=== PATIENT | female | born 1990 | race Caucasian/White ===

== ENCOUNTER 2025-02-02 10:09 | Inpatient (IN) | payer MEDICAID ==
[~2025-02-02] VITALS: Ht 167.6 cm; Wt 56.0 kg
[2025-02-02] MEDS ORDERED: acetaminophen 325mg tablet PO PRN ×2 (10:25)
[2025-02-02] MEDS ORDERED: mag hydrox/Alum hydrox/simeth 30ml oral suspension PO PRN (10:25)
[2025-02-02] MEDS ORDERED: magnesium hydroxide 30ml (MOM) UD suspension PO PRN (10:25)
[2025-02-02] MEDS ORDERED: loperamide 2mg capsule PO PRN (10:25)
[2025-02-02] MEDS ORDERED: diphenhydrAMINE 25mg capsule PO PRN (10:30)
[2025-02-02] MEDS ORDERED: chlorproMAZINE 25mg tablet PO PRN (10:30)
[2025-02-02] MEDS ORDERED: traZODone 50mg tablet PO PRN (10:30)
[2025-02-02 10:47] VITALS: BP 126/96; PULSE 82; RESP 16; TEMP 98; O2SAT 100
[2025-02-02 12:18] VITALS: RESP 16; O2SAT 100
[2025-02-02] MEDS ORDERED: NO HOME MEDS (13:19)
[2025-02-02] MEDS ORDERED: sertraline 50mg tablet PO SCH (16:35)
[2025-02-02] MEDS ORDERED: ALPRAZolam 0.5mg tablet PO PRN (16:40)
[2025-02-02] MEDS: ALPRAZolam 0.5mg tablet PO ONE (16:46)
[2025-02-02] MEDS: sertraline 50mg tablet PO SCH (16:48)
[2025-02-02 19:00] VITALS: RESP 20; O2SAT 99
[2025-02-02] MEDS ORDERED: LORazepam 1 MG tablet PO PRN (19:35)
[2025-02-02 20:00] VITALS: BP 130/90; PULSE 80; RESP 20; TEMP 98.6; O2SAT 99
[2025-02-02] MEDS: traZODone 50mg tablet PO SCH (20:57)
[2025-02-03 07:00] VITALS: RESP 13
[2025-02-03 08:00] VITALS: BP 134/95; PULSE 67; RESP 13; TEMP 97.9; O2SAT 98
[2025-02-03 08:10] LABS: CHOL/HDL RATIO 2.3 (0.00-4.99); CHOLESTEROL 136 MG/DL (0-200); HDL CHOLESTEROL 59 MG/DL (35-60); LDL CHOLESTEROL 64 MG/DL (50-100); TRIGLYCERIDES 63 MG/DL (20-135)
[2025-02-03 19:00] VITALS: RESP 16; O2SAT 99
[2025-02-03 20:00] VITALS: BP 147/101; PULSE 75; RESP 16; TEMP 98.6; O2SAT 99
[2025-02-03] MEDS: hydrOXYzine 25 MG tablet PO PRN (20:47)
[2025-02-04 07:30] VITALS: BP 117/74; PULSE 83; RESP 18; TEMP 96.4; O2SAT 98
[2025-02-04] MEDS ORDERED: SERT-433 PO (10:27)
[2025-02-04] MEDS ORDERED: TRAZ-251 PO (10:27)
[2025-02-04] MEDS ORDERED: HYDR-3686 PO (11:58)
[2025-02-04] MEDS ORDERED: hydrOXYzine 25 MG tablet PO PRN (12:00)
== END 2025-02-04 11:44 | disposition home or self-care (01) | DRG 754 ==
LOC: UNDOADMIN 10:09 → ADULT MH 10:09
PROVIDERS: ADMIT Psychiatry & Neurology Psychiatry; ATTEND Psychiatry & Neurology Psychiatry
PROC: GZHZZZZ Group Psychotherapy (ICD-10-PCS; principal; 2025-02-02)
PROC: GZ51ZZZ Individual Psychotherapy, Behavioral (ICD-10-PCS; 2025-02-02)
DX: F32.9 Major depressive disorder, single episode, unspecified (principal); R45.851 Suicidal ideations; F10.10 Alcohol abuse, uncomplicated; F17.210 Nicotine dependence, cigarettes, uncomplicated; Z91.011 Allergy to milk products; Z88.5 Allergy status to narcotic agent
CPT/HCPCS: 36415; 80061; 87081; A6250; Q0177

== ENCOUNTER 2025-03-31 14:16 | Emergency (ER) | payer MEDICAID ==
[~2025-03-31] VITALS: Ht 167.6 cm; Wt 59.3 kg
[~2025-03-31 14:16] MED LIST: HYDR-3686 PO; SERT-433 PO; TRAZ-251 PO
[2025-03-31 14:21] VITALS: BP 152/105; PULSE 92; RESP 16; O2SAT 100
[2025-03-31] MEDS ORDERED: HYDR-3686 PO (14:47)
[2025-03-31] MEDS ORDERED: OXYC-658 PO (14:47)
[2025-03-31] MEDS ORDERED: ALPR2TAB2 PO (14:47)
[2025-03-31] MEDS ORDERED: ONDA-243 PO (14:47)
--- NOTE | 2025-03-31 14:49 | Physician Documentation ---
HPI ~ General Chief Complaint: Medication Request Stated Complaint: PT STATES ANXIETY Time Seen by MD: 14:17 History of Present Illness HPI Comments 34-year-old female reports ER with chief complaint anxiousness and pain. Patient is currently dealing meds severe anxiousness due to her daughter passing recently. Patient is also endorsing chronic back pain he is asking for refill for medications. Currently denies SI, HI, visual auditory hallucinations. No other complaints at this time Medication Reconciliation Allergies: Coded Allergies: Milk Containing Products (Dairy) (Verified Allergy, Mild, 02/02/25) Uncoded Allergies: [place], Vicodin (Allergy, Unknown, 02/02/25) Scheduled Hydroxyzine Hcl (Atarax), 1 TAB PO Q12H Sertraline HCl (Sertraline HCl), 50 MG PO DAILY Trazodone HCl (Trazodone HCl), 50 MG PO HS Scheduled PRN Alprazolam (Xanax), 1 TAB PO Q12H PRN PRN for anxiety Hydroxyzine Hcl* (Atarax*), 50 MG PO Q6H PRN for itching ONDANSETRON ODT 4mg tablet (Ondansetron Odt), 1 TAB PO Q6H PRN PRN for nausea/vomiting Oxycodone Hcl IR* (Oxycodone IR*), 1 TAB PO Q12H PRN PRN for pain Past Medical History Patient History: FH: lung cancer (Mesothelioma) Smoking Status: Current every day smoker Physical Exam Physical Exam Vital Signs: Temperature: 98.0, Source: Temporal, Heart Rate: 92, Respiratory Rate: 16, BP: 152/105, Pulse Oximetry: 100, Weight: 59.300 Oxygen Flow Rate: 0 Physical Exam General: Well developed, well nourished, no distress. HEENT: Atraumatic, normal conjunctiva, moist mucous membranes. Neck: Full range of motion, supple. Respiratory: Lungs clear, no respiratory distress. Chest: No accessory muscle use, nontender. Cardiovascular: Regular rate and rhythm. Gastrointestinal: Soft, nontender, nondistended. Bowel sounds present. Extremities: Normal range of motion, nontender, normal capillary refill, no deformity. Back: No midline tenderness, no CVA tenderness. Neurologic: Oriented x4. Distal gross motor and sensory intact all four extremities. Moves all 4 extremities spontaneously. Psychiatric: Normal mood and affect. Skin: Normal color, warm and dry. No edema, no ecchymosis Progress Results/Orders Results/Orders Vital Signs 03/31/25 03/31/25 14:21 14:50 Temp 98.0 98.0 Pulse 92 Resp 16 B/P (MAP) 152/105 Pulse Ox 100 O2 Flow Rate 0 Medical Decision Making Findings After detailed discussion and joint medical decision-making, diagnostic and imaging results were discussed with the patient. At this time patient we will be given pain medication as well as Xanax refill. Patient advised to follow up with primary care. ER precautions were given. Patient is stable upon discharge. All patient questions answered to satisfaction Differential Dx:Considerations: Include: Adverse circumstances, Psychosocial, Medical services unavail., Medication refill, Other (Back pain) Departure Disposition: 01 HOME / SELF CARE / HOMELESS Impression: Primary Impression: General medical exam Additional Impressions: Anxiousness Back pain Condition: Stable Discharge Instructions: Medicine Refill at the Emergency Department Referrals: NO PRIMARY CARE PROVIDER (PCP) Prescriptions Oxycodone Hcl IR* (Oxycodone IR*) 5 Mg Tablet 1 TAB PO Q12H PRN PRN for pain for 15 Days, #30 TAB Prov: SARAH HOGAN 03/31/25 Alprazolam (Xanax) 2 Mg Tablet 1 TAB PO Q12H PRN PRN for anxiety for 30 Days, #60 TAB 0 Refills Prov: SARAH HOGAN 03/31/25 Hydroxyzine Hcl (Atarax) 25 Mg Tablet 1 TAB PO Q12H for anxiety for 30 Days, #60 TAB 0 Refills Prov: SARAH HOGAN 03/31/25 ONDANSETRON ODT 4mg tablet (ONDANSETRON ODT) 4 Mg Tab.rapdis 1 TAB PO Q6H PRN PRN for nausea/vomiting for 4 Days, #30 TAB 0 Refills Prov: SARAH HOGAN 03/31/25 Education Educated: Patient Educated regarding: diagnosis, treatment Signature Scribe Signature: none used Attestation: Scribed for Sarah Hogan by Sarah FERGUSON . 03/31/25 14:49 SARAH HOGAN March 31, 2025 14:49
[2025-03-31 14:50] VITALS: TEMP 98
== END 2025-03-31 14:52 | disposition home or self-care (01) ==
LOC: ER 14:16
DX: F41.9 Anxiety disorder, unspecified (principal); G89.29 Other chronic pain; M54.9 Dorsalgia, unspecified; F17.200 Nicotine dependence, unspecified, uncomplicated; Z91.011 Allergy to milk products; Z79.899 Other long term (current) drug therapy
CPT/HCPCS: 99283

== ENCOUNTER 2025-09-01 07:18 | Inpatient (IN) | payer MEDICAID ==
[~2025-09-01] VITALS: Ht 167.6 cm; Wt 63.4 kg
[~2025-09-01 07:18] MED LIST changes: +ALPR2TAB2 PO; +ONDA-243 PO; +OXYC-658 PO
[2025-09-01 11:15] VITALS: RESP 12; O2SAT 100
[2025-09-01 11:19] VITALS: BP 149/110; PULSE 75; RESP 16; TEMP 97.5; O2SAT 100
[2025-09-01] MEDS ORDERED: magnesium hydroxide 30ml (MOM) UD suspension PO PRN (11:50)
[2025-09-01] MEDS ORDERED: mag hydrox/Alum hydrox/simeth 30ml oral suspension PO PRN (11:50)
[2025-09-01] MEDS ORDERED: NICOTINE POLACRILEX 2 MG LOZENGE BC PRN (11:50)
--- NOTE | 2025-09-01 11:52 | ELECTROCARDIOGRAPH REPORT ---
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 FRANTZ Benjamin Measurements Intervals [place] Rate: 61 P: 18 ND: 124 QRS: 23 QRSD: 89 T: 4 QT: 413 QTc: 416 Interpretive Statements Sinus rhythm Electronically Signed On 09-01-2025 16:02:[address] FRANTZ Benjamin Please click the below link to view image of tracing.
[2025-09-01] MEDS ORDERED: MIRT-87 PO (13:11)
[2025-09-01] MEDS ORDERED: NALT50TA5 PO (13:11)
[2025-09-01] MEDS ORDERED: TRAZ-251 PO (13:11)
[2025-09-01] MEDS ORDERED: ESCI5TAB PO (13:11)
[2025-09-01] MEDS ORDERED: LORA-269 PO (13:11)
[2025-09-01] MEDS: nicotine 21mg patch - 24 hr TD ONE (14:19)
--- NOTE | 2025-09-01 17:34 | HISTORY AND PHYSICAL ---
History of Present Illness MH Allergies: Coded Allergies: Milk Containing Products (Dairy) (Verified Allergy, Mild, 02/02/25) Uncoded Allergies: [place], Vicodin (Allergy, Unknown, 02/02/25) Past Family History Patient History: FH: lung cancer (Mesothelioma) Developmental Histroy Place of : [place] in: [place] Number of siblings & ord: 1 brother Has patient been abused: No Assessment/Plan Problems/Diagnosis: (1) Alcohol use disorder (2) MDD (major depressive disorder), recurrent episode, severe DEBBIE BLAIR [facility] Sep 01, 2025 17:34
[2025-09-01 19:00] VITALS: RESP 15; O2SAT 100
[2025-09-01 20:00] VITALS: BP 156/112; PULSE 89; RESP 18; TEMP 98.1; O2SAT 99
[2025-09-02 06:49] LABS: MEAN PLATELET VOLUME 7.8 FL (7.4-10.4); RED CELL DISTRIBUTION WIDTH 12.4 % (11.5-14.5)
[2025-09-02 06:55] LABS: INR 1.1 INR
[2025-09-02 07:00] VITALS: RESP 12
[2025-09-02 07:24] LABS: CHOL/HDL RATIO 2.6 (0.00-4.99); CREATININE 0.67 MG/DL (0.40-0.90); LDL CHOLESTEROL 81 MG/DL (50-100); PHOSPHORUS 4.4 MG/DL (2.3-4.5); TOTAL CARBON DIOXIDE 28.6 MMOL/L (24-32); eCRCL 110 ML/MIN; eGFR > 90 ML/MIN
[2025-09-02] MEDS: multivitamins, therapeutics tablet PO SCH (07:51)
[2025-09-02] MEDS: nicotine 21mg patch - 24 hr TD SCH (07:52)
[2025-09-02 08:00] VITALS: BP 115/88; PULSE 87; RESP 12; TEMP 97.7; O2SAT 97
[2025-09-02] MEDS ORDERED: ESCITALOPRAM 10 mg tablet 10 MG TABLET PO SCH (08:00)
--- NOTE | 2025-09-02 09:35 | HISTORY AND PHYSICAL ---
History of Present Illness History of Present Illness H&P Admission date: 09/01/25 Length of stay: 1 days Status: 5150 CC: HPI: Admitted on 0 for danger to self, acute alcohol intoxication, drinks a bottle of vodka daily and prescribed alprazolam, suicidal ideation with no plan. Her 14 year old child earlier in 2024 from a rare brain cancer, been mourning the loss. BAL 413. Read her daughters autopsy report which lead to consuming so much alcohol. Her boyfriend Gómez has expressed extreme concern for her well being at this time, has had to force her to vomit after consuming too many alprazolam in conjunction with alcohol use. States since her admission in january she has been able to get on an antidepressant that worked for her but then she weaned herself off the antidepressant because she didn't want to be pill dependent, received her daughters full autopsy report this past weekend- "it fucked me up emotionally" then on Thursday she found out that one of her old co-workers was considered brain and she was rolling him into organ donation on Thursday, "then I kind of went on a drinking barrera" then was once again triggered on Thursday- continued to drink heavily, states she called an ambulance on herself and she checked herself in to the emergency department, states she wanted instant relief from the pain. States she has been drinking more since her daughter . She has been trying to care for herself. States that she is not suicidal- per protestant belief that if she killed herself she wouldn't see her daughter again. States she doesnt necessarily perceive that she needs to be here. States she has been off the antidepressants for 2 weeks. States she tries to find a purpose everyday. Since her daughter she is having more frequent panic episodes, there will be weeks or months where her mental health symptoms have improved. Had two panic episodes this past weeks. States that before her daughter she wasn't depressed, grief and depression set with the with her daughter. Her daughter was living with her father in [place], would call and face time her daughter everyday. Daughter was living with her bio father for the past 1 1/2 years. Endorses grief, sadness daily. Denies hx of suicidal ideation. States she wouldn't be upset if she got struck by lighting, states she likes her life she just wishes her daughter was apart of it. In general she wants to live longer. Once a week she states she will struggle to get up in the morning- when she is taking the medication. States she is still able to experience happiness. Enjoys going out and doing activities with her family and friends. Endosres eating daily- 2-3 times a day, states she enjoys eating. States her sleep is impacted by anxiety, states she has had nightmares since high school, states that she keeps reliving her in her dreams- will often wake up from anxiety or from a nightmare and struggle to fall back asleep. States on average gets about 8 hours. Will feel rested when she wakes up in the morning. In general she finds her anxiety to be manageable unless she is triggered by her grief. Denies overwhelming racing thoughts. Denies physical symptoms of anxiety on a daily basis. She states she feels "fine" right now. Psychiatric History Age of initial treatment: occasional panic attacks throughout her life Outpatient: Therapy weekly every Thursday, psychiatric medication prescribed by her primary care doctor. Inpatient: Previously admitted to [facility] inpatient psych unit January 2025, 19 days after the of her daughter.- SI w/plan to use guns. Historical Diagnoses (w/year): panic, depression, anxiety Access to firearms: denies Hx of suicide attempts: denies Hx of self-harm: denies Hx of violence: denies Legal hx: denies Historical Psych Medications: Sertraline, alprazolam, lorazepam, trazodone (headache), lorazepam, Escitalopram 10 mg (didn't work) Current psych psychiatric medication: Alprazolam 1 mg 3-4 times a week just at night Mirtazapine 7.5 mg po qhs Naltrexone 50 mg - states it was helpful (states she stopped using it because she was drinking) - Substance Use History Over the counter medications: denies Caffeine: rare Nicotine: vape daily- 4-5x daily Alcohol: variable- states she will go up to a month without alcohol then start drinking again daily, up to a "6-7 drinks" "sometimes more sometimes less". Hx of drinking daily prior to her daughter's - when her daughter went to live with her dad time buyer in [place] for 1 1/2 years. When asked if she feels like she has an alcohol use disorder she stated, "no". States she can quit alcohol for months and not have cravings, denies hx of alcohol withdrawl symptoms Cannabis: denies Stimulants: denies Opioids: denies Hx of IVDU: denies Other (Inhalants, Hypnotics, Hallucinogens, Rx): denies DUI: denies treatment/rehab hx: denies Gambling: deneis No known hx of IVDU No known hx of meeting criteria for a substance use disorder Social history Born and raised in [place], one brother, moved to [facility] at age 10. lived in [place] since age 18. "my brother is a piece of shit" (lost relationship with him in 2019). Highest grade completed: graduated high school Family History Mental Illness: denies Alcohol/other drug use: paternal sister alcoholism Suicide completions: denies Current Environment Living Situation: lives with boyfriend Gómez and his three small children (they have split custody) - have been together since March(ages 9, 8 4) [place] Relationships: 14 year old daughter on January 13, lots of friends and f danaey, has a umanzor retriever puppy who is another support Spiritual: Alevism Hobbies/ Other interests: gym, christian, time with family, dog, cook. 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 Income/rent/concerns about paying bills or feeding family: Hx: denies Mental Status Evaluation General Appearance: Casually dressed, well kempt Eye contact: consistent with social norms Demeanor: cooperative, guarded, Orientation: to person, place, time, situation Speech: Appropriate rate/rhythm/volume Psychomotor Activity: within normal range Abnormal Body Movements: none observed Mood: depressed Affect: Full range Suicidality: denies suicidal ideation Homicidally: denies Thought content: consistent with social norms Thought process: logical, linear Thought perceptions: no perceptual disorder noted Memory: appears intact Attention: appear attentive, Insight: fair Judgment: fair - - Current Medical Problems: HX of elevated liver enzymes (r/t alcohol use) Medical History Cardiac HX: Denies TBI Hx: denies Seizure Hx: denies UMBERTO Hx: denies - - Diagnoses MDD, recurrent, severe Panic attacks Alcohol use disorder Grief related to unexpected of child Tobacco use disorder- vaping Assessment Based on initial evaluation, including interview and history obtained today, patient appears to meet criteria for major depressive disorder, recurrent severe, panic attacks, alcohol disorder. Second admission to the inpatient unit in the context of grief from the philosopher, Child depression in the past month in the context of stopping antidepressant medication, I'll go up to a liter of vodka a day also has been using alprazolam. Parents and boyfriend are greatly concerned about her disregard for her life. She has minimizing the severity of behaviors that have occurred in the past week. She's willing to restart mirtazapine to help with anxiety and sleep. She's not interested in augmenting with an SSRI at this time. Discuss that protocol would be in place. She minimize his alcohol use state she's never had withdrawal symptoms before. Discussed that this provider will not be prescribing, but that lorazepam is long-term due to risk of . She is currently in therapy. Discussed that this is hernandez to long- term improvement. She has support a family, which is another significant factor. There. - Safety risk: low risk of imminent self-harm, low risk of externalized violent behaviors Plan Continue mirtazapine 7.5 mg po qhs Start CIWA protocol Maintenance therapy for tobacco use disorder: schedule nicotine patch, prn nicotine lozenges Continue Q15 min checks Continue Groups/Milieu Engagement Discharge Plan: Recommend further substance use treatment program- to home with scheduled follow ups for outpatient therapy and medication management Access to firearms: Spent approximately 90 minutes reviewing records and test results, assessing and treatment planning, completing care coordination and documenting the encounter. Discussed risks, including possible adverse effects, and benefits of treatment recommendations including no treatment. Voice recognition software may have been used to dictate this note. There may be errors due to use of such software. Reporting of serious errors is appreciated. Allergies: Coded Allergies: Milk Containing Products (Dairy) (Verified Allergy, Mild, 02/02/25) Uncoded Allergies: [place], Vicodin (Allergy, Unknown, 02/02/25) Past Family History Patient History: FH: lung cancer (Mesothelioma) Developmental Histroy Place of : [place] Rasied in: [place] Number of siblings & ord: 1 brother Has patient been abused: No Assessment/Plan Problems/Diagnosis: (1) Alcohol use disorder (2) MDD (major depressive disorder), recurrent episode, severe CODING VISIT-PSYCHIATRY Date of Service: Sep 02, 2025 Billing Provider: DEBBIE BLAIR DNP Psych Common Visit Codes: [id number] DIAG EVAL W/MED SRVCS DEBBIE BLAIR DNP Sep 02, 2025 09:35
--- NOTE | 2025-09-02 18:09 | HISTORY AND PHYSICAL ---
History & Physical Providers to CC ~ History of Present Illness Reason for Admit\Complaint: Suicidal ideation History of Present Illness This is the hospitalist history and physical exam on patients hospitalized at [facility]/ [facility]. This is a 34-year-old female who has been hospitalized in January of this year at the [place] [facility] after her 14-year-old daughter had of a rare brain cancer. The patient recently obtained the full autopsy report which was over 200 pages and the details caused her to spiral downward to the point that the patient was drinking excessively and her boyfriend who which she lives with called 911 for help and a apparently the patient was expressing suicidal ideation. Currently the patient denies any suicidal ideation in his wondering why she is hospitalized in a psychiatric facility. Patient no other complaints and appears to be highly functioning. Allergies: Coded Allergies: Milk Containing Products (Dairy) (Verified Allergy, Mild, 02/02/25) Uncoded Allergies: [place], Vicodin (Allergy, Unknown, 02/02/25) Home Medications Home Medications Active Reported Trazodone HCl 50 Mg Tablet 1 Tab PO HS PRN Ativan (Lorazepam) 1 Mg Tablet 1 Tab PO BID PRN Mirtazapine 15 Mg Tablet 1 Tab PO HS Naltrexone Hcl 50 Mg Tablet 1 Tab PO DAILY Lexapro* (Escitalopram Oxalate) 5 Mg Tablet 2 Tab PO DAILY Past Medical History Past Medical History Situational depression Alcohol use disorder Prior psychiatric hospitalization Past Surgical History Surgical History Comment Breast augmentation that failed with subsequent revision Family History Family History: FH: lung cancer (Mesothelioma) Past Social History Social History Comment Vapes nicotine, binge drinks alcohol, denies any illicit drug use ROS ROS Except for positives in the HPI the rest of the 14 point review systems is negative Exam Vitals: Vital Signs Date Time Temp Pulse Resp B/P (MAP) Pulse Ox O2 Delivery O2 Flow Rate FiO2 09/02/25 08:00 97.7 87 12 115/88 (97) 97 Room Air General: Gen. No acute distress alert and oriented 4 Lungs clear to ascultation bilaterally, no wheezes rales or rhonchi appreciated Heart normal sinus rhythm no murmurs rubs or clicks noted Abdomen soft nontender bowel sounds are normoactive Lower extremities no clubbing cyanosis, nor edema appreciated bilaterally Diagnostic Data Last Recorded Lab Results: 10/25/25 0633 10/25/25 0633 Diagnostic Data: Laboratory Tests Test 09/02/25 06:33 Prothrombin Time 10.8 SECONDS (9.0-12.0) INR International Normalized Ratio 1.1 INR Coagulation Comments Problems: (1) MDD (major depressive disorder), recurrent episode, severe Additional Plan #Major depressive disorder situational reoccurring Followed by Psychiatry # alcohol use disorder No signs of DTs or alcohol withdrawal at this juncture Monitor for DTs # nicotine use disorder Vapes On a nicotine patch The Hospitalist service will continue to follow the patient while hospitalized at [facility] Date of Service: Sep 02, 2025 Billing Provider: KATHY CERON DO Common Visit Codes: [id number] INP/OBS CARE (LOW) KATHY CERON DO Sep 02, 2025 18:09
[2025-09-02 19:00] VITALS: RESP 16; O2SAT 100
[2025-09-02 20:00] VITALS: BP 142/91; PULSE 78; RESP 16; TEMP 98.4; O2SAT 100
[2025-09-03 07:00] VITALS: RESP 16; O2SAT 98
[2025-09-03 07:09] LABS: INR 1.1 INR
[2025-09-03 07:18] LABS: PHOSPHORUS 4.8 MG/DL (2.3-4.5)
[2025-09-03 08:00] VITALS: BP 127/93; PULSE 77; RESP 16; TEMP 97.8; O2SAT 97
[2025-09-03] MEDS ORDERED: MIRT-87 PO (11:13)
[2025-09-03] MEDS ORDERED: GABA-530 PO (11:14)
--- NOTE | 2025-09-03 19:37 | DISCHARGE SUMMARY ---
Discharge Summary Providers to CC ~ Discharge Summary Admission Diagnosis: MDD, Alcohol use disorder Discharge Diagnosis\\Comment: stable, no longer in crisis Operations\\Procedures: none Consultants: none Complications: none Condition on DC: Stable 2 or more antipsychotic used: No 2/more antipsychotic addressed: No Does Patient smoke: Yes Smoking education given.: Yes Discharge Summary: Discharge Summary Admission date: 09/01/25 Length of stay: 2 days Status: 5150 HPI: Admitted on 5150 for danger to self, acute alcohol intoxication, drinks a bottle of vodka daily and prescribed alprazolam, suicidal ideation with no plan. Her 14 year old child earlier in 2024 from a rare brain cancer, been mourning the loss. BAL 413. Read her daughters autopsy report which lead to consuming so much alcohol. Her boyfriend Gómez has expressed extreme concern for her well being at this time, has had to force her to vomit after consuming too many alprazolam in conjunction with alcohol use. States since her admission in january she has been able to get on an antidepressant that worked for her but then she weaned herself off the antidepressant because she didn't want to be pill dependent, received her daughters full autopsy report this past weekend- "it fucked me up emotionally" then on Thursday she found out that one of her old co-workers was considered brain and she was rolling him into organ donation on Thursday, "then I kind of went on a drinking barrera" then was once again triggered on Thursday- continued to drink heavily, states she called an ambulance on herself and she checked herself in to the emergency department, states she wanted instant relief from the pain. States she has been drinking more since her daughter . She has been trying to care for herself. States that she is not suicidal- per voodoo belief that if she killed herself she wouldn't see her daughter again. States she doesnt necessarily perceive that she needs to be here. States she has been off the antidepressants for 2 weeks. States she tries to find a purpose everyday. Since her daughter she is having more frequent panic episodes, there will be weeks or months where her mental health symptoms have improved. Had two panic episodes this past weeks. States that before her daughter she wasn't depressed, grief and depression set with the with her daughter. Her daughter was living with her father in [place], would call and face time her daughter everyday. Daughter was living with her bio father for the past 1 1/2 years. Endorses grief, sadness daily. Denies hx of suicidal ideation. States she wouldn't be upset if she got struck by lighting, states she likes her life she just wishes her daughter was apart of it. In general she wants to live longer. Once a week she states she will struggle to get up in the morning- when she is taking the medication. States she is still able to experience happiness. Enjoys going out and doing activities with her family and friends. Endosres eating daily- 2-3 times a day, states she enjoys eating. States her sleep is impacted by anxiety, states she has had nightmares since high school, states that she keeps reliving her in her dreams- will often wake up from anxiety or from a nightmare and struggle to fall back asleep. States on average gets about 8 hours. Will feel rested when she wakes up in the morning. In general she finds her anxiety to be manageable unless she is triggered by her grief. Denies overwhelming racing thoughts. Denies physical symptoms of anxiety on a daily basis. She states she feels "fine" right now. Psychiatric History Age of initial treatment: occasional panic attacks throughout her life Outpatient: Therapy weekly every Thursday, psychiatric medication prescribed by her primary care doctor. Inpatient: Previously admitted to [facility] inpatient psych unit January 2025, 19 days after the of her daughter.- SI w/plan to use guns. Historical Diagnoses (w/year): panic, depression, anxiety Access to firearms: denies Hx of suicide attempts: denies Hx of self-harm: denies Hx of violence: denies Legal hx: denies Historical Psych Medications: Sertraline, alprazolam, lorazepam, trazodone (headache), lorazepam, Escitalopram 10 mg (didn't work) Current psych psychiatric medication: Alprazolam 1 mg 3-4 times a week just at night Mirtazapine 7.5 mg po qhs Naltrexone 50 mg - states it was helpful (states she stopped using it because she was drinking) Substance Use History Nicotine: vape daily- 4-5x daily Alcohol: variable- states she will go up to a month without alcohol then start drinking again daily, up to a "6-7 drinks" "sometimes more sometimes less". Hx of drinking daily prior to her daughter's - when her daughter went to live with her dad daytime caregiver in [place] for 1 1/2 years. When asked if she feels like she has an alcohol use disorder she stated, "no". States she can quit alcohol for months and not have cravings, denies hx of alcohol withdrawl symptoms No known hx of IVDU Social history Born and raised in [facility], one brother, moved [place] [facility] [place] age 10. lived in [place] since age 18. "my brother is a piece of shit" (lost relationship with him in 2019). Highest grade completed: graduated high school Family History Mental Illness: denies Alcohol/other drug use: paternal sister alcoholism Suicide completions: denies Current Environment Living Situation: lives with boyfrienphilip Magaña and his three small children (they have split custody) - have been together since March(ages 9, 8 4) Hernandez Relationships: 14 year old daughter on January 13, lots of friends and family, has a umanzor retriever puppy who is another support Spiritual: Gnosticism Hobbies/ Other interests: gym, christian, time with family, dog, cook. 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 Income/rent/concerns about paying bills or feeding family: Hx: denies Today on Assessment: Had a family meeting with patient, patient's boyfriend, patient's boyfriend's mother (who is hernandez support) about her current mental health, discussed concerns related to alcohol use disorder which appears to be the hernandez factor, worsening depression leading to crisis state that resulted in admission. She denies suicide and self harm. She acknowledged the severity of her current alcohol use and discuss in detail her plan to obtain from alcohol and obtain treatment, including attending a partial outpatient program. Psychiatric Medications: Mirtazapine 7.5 mg Side Effects: Denies No evidence of TD, EPS AIMs: 0 Review of Psychiatric Symptoms: Mood: depression, ongoing grief Suicide/self-harm: denies Sleep: improved since being in the hospital 7 hours Appetite: eating three meals a day Energy: adequate Anxiety: high related to being in the hospital, denies panic episode episodes Irritability: endorses related to being in the hospital environments Homicidal/Anger: denies Hallucinations/Paranoia: denies Trauma symptoms: denies Symptoms related to substance withdrawal: denies Mental Status Evaluation General Appearance: Casually dressed, well kempt Eye contact: consistent with social norms Demeanor: cooperative Orientation: to person, place, time, situation Speech: Appropriate rate/rhythm/volume Psychomotor Activity: within normal range Abnormal Body Movements: none observed Mood: depressed Affect: Full range Suicidality: denies suicidal ideation Homicidally: denies Thought content: consistent with social norms Thought process: logical, linear Thought perceptions: no perceptual disorder noted Memory: appears intact Attention: appear attentive, Insight: fair Judgment: fair - - Current Medical Problems: HX of elevated liver enzymes (r/t alcohol use) TSH elevated Medical History Cardiac HX: Denies TBI Hx: denies Seizure Hx: denies UMBERTO Hx: denies - - Discharge Diagnoses MDD, recurrent, severe Panic attacks Alcohol use disorder Grief related to unexpected of child Tobacco use disorder- vaping Discharge Assessment Zoey is a 34 year old female who presents stable for discharge. She presented in crisis, and was treated for major depressive disorder, recurrent severe, panic attacks, alcohol disorder. This is her second admission to the inpatient unit in the context of grief from the unexpected of her 14 year old daughter. Her depression has been worsening in the past month in the context of stopping antidepressant medication and drinking up to a liter of vodka a day as well as taking alprazolam. Parents and boyfriend were greatly concerned about her disregard for her life. She is no longer in a crisis state and has developed a comprehensive plan to further address for mental health. She is no longer minimizing the severity of behaviors that have occurred in the past week including her alcohol use. She's willing to continue mirtazapine nightly to help with anxiety and sleep. She's not interested in augmenting with an SSRI at this time. She did not experience any alcohol withdrawal symptoms while on the unit. She minimize his alcohol use state she's never had withdrawal symptoms before. Discussed that this provider will not be prescribing, but that lorazepam is long-term risks of addiction and especially when consumed with alcohol. She was willing to trial gabapentin as needed for alcohol, cravings, and anxiety as an alternative. Would not recommend continuing now at this time due to elevated liver enzymes. Family meeting today she took accountability for the severity of her alcohol use, and has developed a comprehensive plan to address, including attending a partial outpatient program and attending AA meetings with a friend who is sober. She is currently in therapy and has a therapy appointment tomorrow, Tuesday 09/04. She has a follow up with an outpatient provider who is prescribing her medication and can further address for elevated liver enzymes, and other lab abnormalities within the next few weeks. She was able to verbalize other nonpharmacological coping skills. She will implement daily, including dog walks exercise, eating three meals a day. - Safety risk: low risk of imminent self-harm, low risk of externalized violent behaviors Discharge Plan Continue mirtazapine 7.5 mg po qhs Start gabapentin as needed 100-300 mg TID for alcohol cravings, anxiety Attend Intensive outpatient program-3 hours for 3 days a week [facility] Attend AA meetings with friend who is sober and has familiarity with local AA- she has a list of meetings to attend Follow up appointment with therapist on Thursday Follow up with medication prescriber- [facility] (follow up scheduled up scheduled for the next month) Recommend not restarting naltrexone until follow up appointment with primary care due to elevated liver enzymes No Access to firearms. Safety plan established, reviewed, copy sent home (copy in the chart) Spent approximately 60 minutes reviewing records and test results, assessing and treatment planning, completing care coordination and documenting the encounter. Discussed risks, including possible adverse effects, and benefits of treatment recommendations including no treatment. Voice recognition software may have been used to dictate this note. There may be errors due to use of such software. Reporting of serious errors is appreciated. Safety plan established, reviewed, copy sent home (copy in the chart) *Problems/Diagnosis: (1) MDD (major depressive disorder), recurrent episode, severe Status: Chronic Total Time Spent on D/C: > 30 Minutes Counseling Services Smoking & Tobacco Cessation: 3-10 Minutes CODING VISIT-PSYCHIATRY Date of Service: Sep 03, 2025 Billing Provider: DEBBIE BLAIR DNP Psych Common Visit Codes: 78783-AUQ/OBS DISCH DAY <30min DEBBIE BLAIR DNP Sep 03, 2025 19:37
== END 2025-09-03 11:47 | disposition home or self-care (01) | DRG 751 ==
LOC: UNDOADMIN 10:08 → ADULT MH 10:08 → UNDODISIN 09-03 11:47
PROVIDERS: ADMIT Psychiatry & Neurology Psychiatry; ATTEND Psychiatry & Neurology Psychiatry
DX: F33.2 Major depressive disorder, recurrent severe without psychotic features (principal); R45.851 Suicidal ideations; F10.129 Alcohol abuse with intoxication, unspecified; F17.290 Nicotine dependence, other tobacco product, uncomplicated; F41.0 Panic disorder [episodic paroxysmal anxiety]; Y90.8 Blood alcohol level of 240 mg/100 ml or more; Z81.8 Family history of other mental and behavioral disorders; Z80.1 Family history of malignant neoplasm of trachea, bronchus and lung; Z81.1 Family history of alcohol abuse and dependence; Z85.841 Personal history of malignant neoplasm of brain
CPT/HCPCS: 36415; 80053; 80061; 82150; 82248; 82607; 83036; 83690; 83735; 84100; 84443; 85025; 85610; 87081; 93005; A6250; A6258; Q0177